=== PATIENT | female | born 1985 | race Caucasian/White ===

== ENCOUNTER 2018-11-13 04:47 | Emergency (ER) | payer SELFPAY ==
[~2018-11-13] VITALS: Ht 162.6 cm; Wt 72.8 kg
[2018-11-13 04:51] VITALS: Ht 162.6 cm; Wt 72.8 kg
[2018-11-13 05:54] VITALS: BP 117/72
== END 2018-11-13 05:54 | disposition home or self-care (01) ==
LOC: D.ER 04:47
DX: N92.6 Irregular menstruation, unspecified (principal)